=== PATIENT | female | born 1985 | race Asian ===

== ENCOUNTER 2020-11-28 08:04 | Emergency (ER) | payer BC ==
[2020-11-28] MEDS ORDERED: Sodium Chloride 0.9% 10 ML Syringe FLUSH PRN (08:06)
[2020-11-28] MEDS ORDERED: Sodium Chloride 0.9% 2.5 ML Syringe FLUSH PRN (08:06)
--- NOTE | 2020-11-28 08:21 | EDM.PDOC ---
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 She is not yet had care but has appointment on Saturday of this week. She notes that she had an at home positive test yesterday. She notes that her last menstrual period was roughly 3 or 4 months ago. She is also noticed that her abdomen appears distended over the last couple of months. She notes that spotting continues through today but is not worse than yesterday. She is denies any passage of clots or tissue. Denying any nausea or vomiting. She does have some suprapubic pain. She does have some mild suprapubic pain with urination. She denies back pain. She notes her last was complicated by "something breaking and I needed a transfusion". She did deliver vaginally and no complications with child. Lower Abdomen Pain Score (Numeric/FACES): 8 - Related Data Allergies Allergy/AdvReac Type Severity Reaction Status Date / Time chicken derived Allergy Rash Verified 11/28/20 08:30 Home Meds: Home Meds . 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 History: hx of Post bleed 05/20/15 , Bacri balloon used to stop bleeding Musculoskeletal History: Reports: None Neurological History: Reports: None Psychiatric History: Reports: None Endocrine/Metabolic History: Reports: None Hematologic History: Reports: Blood Transfusion(s) Immunologic History: Reports: None Oncologic (Cancer) History: Reports: None Dermatologic History: Reports: None Other Dermatologic History: Armpit cyst removal 10 years ago - Past Surgical History Female Surgical History: Reports: Other (See Below) ED ROS GENERAL - Review of Systems Review Of Systems: Comprehensive ROS is negative, except as noted in HPI. ED EXAM, GENERAL - Physical Exam Exam: See Below Exam Limited By: No Limitations General Appearance: Alert, WD/WN, No Apparent Distress Throat/Mouth: Normal Voice, No Airway Compromise Head: Atraumatic, Normocephalic Neck: Normal Inspection Respiratory/Chest: No Accessory Muscle Use Cardiovascular: Normal Peripheral Pulses GI/Abdominal: Soft, Non-Tender, Other (distended) Course - Vital Signs Last Recorded V/S: Last Vital Signs Temp 98.1 F 11/28/20 08:30 Pulse 95 11/28/20 08:30 Resp 16 11/28/20 08:30 BP 113/69 11/28/20 08:30 Pulse Ox 97 11/28/20 08:30 - Orders/Labs/Meds Orders: Active Orders 24 hr Category Date Time Status Sodium Chloride 0.9% [Saline Flush] Med 11/28/20 08:06 Active 10 ml FLUSH ASDIRECTED PRN Sodium Chloride 0.9% [Saline Flush] Med 11/28/20 08:06 Active 2.5 ml FLUSH ASDIRECTED PRN Saline Lock Insert [OM.PC] Stat Oth 11/28/20 08:07 Ordered Medication Orders Sodium Chloride (Saline Flush) 10 ml FLUSH ASDIRECTED PRN PRN Reason: Keep Vein Open Last Admin: 11/28/20 08:35 Dose: 10 ml Documented by: NICOLE Sodium Chloride (Saline Flush) 2.5 ml FLUSH ASDIRECTED PRN PRN Reason: Keep Vein Open Last Admin: 11/28/20 08:35 Dose: 2.5 ml Documented by: NICOLE Labs: Laboratory Tests 11/28/20 11/28/20 11/28/20 Range/Units 08:25 08:29 08:29 Sodium 137 (136-145) mmol/L Potassium 4.0 (3.5-5.1) mmol/L Chloride 102 (98-107) mmol/L Carbon Dioxide 24.0 (21.0-32.0) mmol/L BUN 11 (7.0-18.0) mg/dL Creatinine 0.8 (0.6-1.0) mg/dL Est Cr Clr Drug Dosing 76.89 mL/min Estimated GFR (MDRD) > 60.0 ml/min Glucose 88 (74-106) mg/dL Calcium 9.2 (8.5-10.1) mg/dL Total Bilirubin 0.4 (0.2-1.0) mg/dL AST 23 (15-37) IU/L ALT 45 (14-63) IU/L Alkaline Phosphatase 84 (46-116) U/L Total Protein 8.2 (6.4-8.2) g/dL Albumin 3.8 (3.4-5.0) g/dL Globulin 4.4 H (2.6-4.0) g/dL Albumin/Globulin Ratio 0.9 (0.9-1.6) HCG, Quant 4273.0 mIU/mL Urine Color YELLOW Urine Appearance CLEAR Urine pH 7.0 (5.0-8.0) Ur Specific [place] 1.020 (1.001-1.035) Urine Protein NEGATIVE (NEGATIVE) mg/dL Urine Glucose (UA) NEGATIVE (NEGATIVE) mg/dL Urine Ketones NEGATIVE (NEGATIVE) mg/dL Urine Occult Blood NEGATIVE (NEGATIVE) Urine Nitrite NEGATIVE (NEGATIVE) Urine Bilirubin NEGATIVE (NEGATIVE) Urine Urobilinogen 0.2 (<2.0) EU/dL Ur Leukocyte Esterase NEGATIVE (NEGATIVE) Blood Type 11/28/20 Range/Units 08:29 Sodium (136-145) mmol/L Potassium (3.5-5.1) mmol/L Chloride (98-107) mmol/L Carbon Dioxide (21.0-32.0) mmol/L BUN (7.0-18.0) mg/dL Creatinine (0.6-1.0) mg/dL Est Cr Clr Drug Dosing mL/min Estimated GFR (MDRD) ml/min Glucose (74-106) mg/dL Calcium (8.5-10.1) mg/dL Total Bilirubin (0.2-1.0) mg/dL AST (15-37) IU/L ALT (14-63) IU/L Alkaline Phosphatase (46-116) U/L Total Protein (6.4-8.2) g/dL Albumin (3.4-5.0) g/dL Globulin (2.6-4.0) g/dL Albumin/Globulin Ratio (0.9-1.6) HCG, Quant mIU/mL Urine Color Urine Appearance Urine pH (5.0-8.0) Ur Specific Pre[place] (1.001-1.035) Urine Protein (NEGATIVE) mg/dL Urine Glucose (UA) (NEGATIVE) mg/dL Urine Ketones (NEGATIVE) mg/dL Urine Occult Blood (NEGATIVE) Urine Nitrite (NEGATIVE) Urine Bilirubin (NEGATIVE) Urine Urobilinogen (<2.0) EU/dL Ur Leukocyte Esterase (NEGATIVE) Blood Type A POSITIVE Meds: Medications Generic Name Dose Route Start Last Admin Trade Name Terrie PRN Reason Stop Dose Admin Sodium Chloride 10 ml 11/28/20 08:06 11/28/20 08:35 Saline Flush FLUSH 10 ml ASDIRECTED PRN Administration Keep Vein Open Sodium Chloride 2.5 ml 11/28/20 08:06 11/28/20 08:35 Saline Flush FLUSH 2.5 ml ASDIRECTED PRN Administration Keep Vein Open - Re-Assessments/Exams Free Text/Narrative Re-Assessment/Exam: 11/28/20 08:26 We will get labs, ultrasound, pelvic exam. We will follow up results and disposition accordingly. 11/28/20 09:38 Ultrasound reveals evidence of early intrauterine around 5 weeks 1 day. This correlates with patient patient's beta-hCG level. Ectopic cannot fully be excluded as a pole is not seen, there is also no heartbeat as this is an early intrauterine . Patient is following up with her HEALTH INFORMATION CLERK for repeat assessment this Saturday and return precautions were discussed at length for signs and symptoms related to ectopic . Pelvis exam reveals normal external and internal vaginal exam, no discharge, no bleeding, no CMT, no masses, closed cervical os Departure - Departure Time of Disposition: 10:02 Disposition: Home, Self-Care 01 Condition: Good Clinical Impression: Qualifiers: Weeks of gestation: less than 8 weeks Qualified Code(s): Z3A.01 - Less than 8 weeks gestation of - Discharge Information Instructions: Ectopic , [id number] Referrals: PCP,None [Primary Care Provider] - Forms: ED Department Discharge Additional Instructions: Your ultrasound reveals evidence of an early . Because it is so early, we cannot fully exclude ectopic which is a type of where the fetus implants in an improper area of the body. These types of pregnancies cannot turn into normal pregnancies and are very dangerous. It is very important that you follow-up with your HEALTH INFORMATION CLERK this Saturday for repeat assessment to make sure that you do not have an ectopic . There were no signs on the ultrasound to suggest ectopic , I only give you this information because it cannot be completely ruled out at this time because of the is so early. Otherwise everything looks normal. The following information is given to patients seen in the emergency department who are being discharged to home. This information is to outline your options for follow-up care. We provide all patients seen in our emergency department with a follow-up referral. The need for follow-up, as well as the timing and circumstances, are variable depending upon the specifics of your emergency department visit. If you don't have a primary care physician on staff, we will provide you with a referral. We always advise you to contact your personal physician following an emergency department visit to inform them of the circumstance of the visit and for follow-up with them and/or the need for any referrals to a consulting specialist. The emergency department will also refer you to a specialist when appropriate. This referral assures that you have the opportunity for follow-up care with a specialist. All of these measure are taken in an effort to provide you with optimal care, which includes your follow-up. Under all circumstances we always encourage you to contact your private physician who remains a resource for coordinating your care. When calling for follow-up care, please make the office aware that this follow-up is from your recent emergency room visit. If for any reason you are refused follow-up, please contact the [facility] Emergency Department at and asked to speak to the emergency department charge nurse. Please follow up with your primary care physician. If you do not have a primary care physician, see below: [facility] [address] [place] [id number] [facility] [address] [place] [id number] [facility] [address] [place] [id number] Sepsis Event Note (ED) - Focused Exam Vital Signs: Vital Signs Temp Pulse Resp BP Pulse Ox 11/28/20 08:30 98.1 F 95 16 113/69 97 - My Orders Last 24 Hours: My Active Orders 11/28/20 08:06 Sodium Chloride 0.9% [Saline Flush] 10 ml FLUSH ASDIRECTED PRN Sodium Chloride 0.9% [Saline Flush] 2.5 ml FLUSH ASDIRECTED PRN 11/28/20 08:07 Saline Lock Insert [OM.PC] Stat - Assessment/Plan Last 24 Hours: My Active Orders 11/28/20 08:06 Sodium Chloride 0.9% [Saline Flush] 10 ml FLUSH ASDIRECTED PRN Sodium Chloride 0.9% [Saline Flush] 2.5 ml FLUSH ASDIRECTED PRN 11/28/20 08:07 Saline Lock Insert [OM.PC] Stat
[2020-11-28 09:17] LABS: BLOOD UREA NITROGEN,BUN 11 mg/dL (7.0-18.0); CHLORIDE,CL 102 mmol/L (98-107); GLUCOSE RANDOM 88 mg/dL (74-106); SODIUM,NA 137 mmol/L (136-145)
--- NOTE | 2020-11-28 09:18 | US ---
INDICATION: female; pelvic pain; rule out ectopic gestation. COMPARISON: None. TECHNIQUE: Transvaginal pelvic ultrasound. FINDINGS: An intrauterine gestation with the mean diameter of the gestational sac measuring 5.7 mm corresponding to 5 weeks and 1 day of gestational age. No pole or cardiac activity identified. The right ovary is measuring 2.4 x 2.1 x 2.2 cm and the left ovary is measuring 4.5 x 3.1 x 2.6 cm. No free fluid identified within the cul-de-sac. A solid structure identified within the left ovary with echogenic features suggestive but not diagnostic of a ethmoid. A complex cystic structure identified in the right ovary; rule out corpus luteum cyst. IMPRESSION: 1. Intrauterine gestation of 5 weeks and 1 day duration. 2. No pole or cardiac activity identified; this may be too early; followup is suggested. 3. Possible dermoid involving the left ovary. Dictated by Dilshad Bennett MD @ Nov 28 2020 9:10AM Signed by Dr. Dilshad Bennett @ Nov 28 2020 9:16AM
[2020-11-28 10:10] VITALS: BP 98/62; PULSE 88
== END 2020-11-28 10:09 | disposition home or self-care (01) ==
LOC: MW.ED 08:04
DX: O99.891 Other specified diseases and conditions complicating pregnancy (principal); R10.30 Lower abdominal pain, unspecified; Z91.018 Allergy to other foods; Z3A.01 Less than 8 weeks gestation of pregnancy
CPT/HCPCS: 36415; 76801; 76801-26; 80053; 81003; 84144; 84702; 86900; 86901; 99283; 99284-25

== ENCOUNTER 2021-07-28 00:01 | Inpatient (IN) | payer BC ==
[2021-07-28] MEDS ORDERED: Lactated Ringers 1,000 ML IV ONE (00:30)
[2021-07-28] MEDS ORDERED: Butorphanol 1 MG/ML SDV IVPUSH ONE (00:30)
[2021-07-28] MEDS ORDERED: Water For Irrigation,Sterile 1,000 ML Container IRR PRN (02:02)
[2021-07-28] MEDS ORDERED: Sodium Chloride 0.9% 2.5 ML Syringe FLUSH PRN (02:02)
[2021-07-28] MEDS ORDERED: Carboprost Tromethamine 250 MCG/1 ML Amp IM PRN (02:02)
[2021-07-28] MEDS ORDERED: Nalbuphine 10 MG/1 ML Vial IVPUSH PRN (02:02)
[2021-07-28] MEDS ORDERED: Methylergonovine 0.2 MG/1 ML Amp IM PRN ×2 (02:02→14:21)
[2021-07-28] MEDS ORDERED: Sodium Chloride 0.9% 10 ML Syringe FLUSH PRN (02:02)
[2021-07-28] MEDS ORDERED: Tranexamic Acid 1,000 MG in Sodium Chloride 0.9% 100 ML IV PRN ×2 (02:02→14:21)
[2021-07-28] MEDS ORDERED: Sodium Chloride 0.9% 10 ML SDV IV PRN (02:02)
[2021-07-28] MEDS ORDERED: Lidocaine 1% 50 ML MDV INJECT PRN (02:02)
[2021-07-28] MEDS ORDERED: Misoprostol 200 MCG Tab PO PRN (02:02)
[2021-07-28] MEDS ORDERED: Ondansetron 4 MG/2 ML SDV IVPUSH PRN ×2 (02:02→14:21)
[2021-07-28] MEDS ORDERED: Oxytocin/0.9 % Sodium Chloride 30 UNIT/500 ML BAG IV SCH ×2 (02:15→07:30)
[2021-07-28] MEDS: Lactated Ringers 1,000 ML IV SCH ×4 (02:20→21:18)
[2021-07-28] MEDS ORDERED: Ropivacaine HCl/PF 200 ML ONE (02:42)
[2021-07-28] MEDS ORDERED: Bupivacaine 0.25% 10 ML SDV ONE (02:43)
--- NOTE | 2021-07-28 03:53 | PCM.PREANE ---
Preanesthetic Assessment - Review of Systems General: No Symptoms Pulmonary: No Symptoms Cardiovascular: No Symptoms Gastrointestinal: No Symptoms Neurological: No Symptoms Other: Reports: None - Physical Assessment Height: 5 ft 2 in Weight: 76.204 kg ASA Class: 2 Mental Status: Alert & Oriented x3 Airway Class: Mallampati = 3 Dentition: Reports: Normal Dentition Thyro-Mental Finger Breadths: 2 Mouth Opening Finger Breadths: 2 ROM/Head Extension: Full Lungs: Clear to Auscultation, Normal Respiratory Effort Cardiovascular: Regular Rate, Regular Rhythm - Lab Values: Laboratory Last Values WBC 15.89 K/uL (4.0-11.0) H 07/28/21 00:20 RBC 4.23 M/uL (4.30-5.90) L 07/28/21 00:20 Hgb 10.5 g/dL (12.0-16.0) L 07/28/21 00:20 Hct 32.4 % (36.0-46.0) L 07/28/21 00:20 MCV 76.6 fL (80.0-98.0) L 07/28/21 00:20 MCH 24.8 pg (27.0-32.0) L 07/28/21 00:20 MCHC 32.4 g/dL (31.0-37.0) 07/28/21 00:20 RDW Std Deviation 42.3 fl (28.0-62.0) 07/28/21 00:20 RDW Coeff of Florentino 15 % (11.0-15.0) 07/28/21 00:20 Plt Count 320 K/uL (150-400) 07/28/21 00:20 MPV 10.20 fL (7.40-12.00) 07/28/21 00:20 SARS-CoV-2 RNA (HUANG) NEGATIVE (NEGATIVE) 07/28/21 00:34 - Allergies Allergies/Adverse Reactions: Allergies Allergy/AdvReac Type Severity Reaction Status Date / Time chicken derived Allergy Rash Verified 07/28/21 00:39 - Acknowledgements Anesthesia Type Planned: Epidural Pt an Appropriate Candidate for the Planned Anesthesia: Yes Alternatives and Risks of Anesthesia Discussed w Pt/Guardian: Yes Pt/Guardian Understands and Agrees with Anesthesia Plan: Yes PreAnesthesia Questionnaire HEENT History: Reports: None Cardiovascular History: Reports: None Respiratory History: Reports: None Gastrointestinal History: Reports: GERD 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 OB/BYN History: hx of Post bleed 05/20/15 , Bacri balloon used to stop bleeding Musculoskeletal History: Reports: None Neurological History: Reports: None Psychiatric History: Reports: None Endocrine/Metabolic History: Reports: None Hematologic History: Reports: Blood Transfusion(s) Immunologic History: Reports: None Oncologic (Cancer) History: Reports: None Dermatologic History: Reports: None Other Dermatologic History: Armpit cyst removal 10 years ago - Infectious Disease History Infectious Disease History: Reports: None - Past Surgical History Head Surgeries/Procedures: Reports: None Female Surgical History: Reports: Other (See Below) Other Female Surgeries/Procedures: bakri balloon placement for post bleed 05/20/15 - HOME MEDS Home Medications: Home Meds . [No Known Home Meds] 11/28/20 [History] - CURRENT (IN HOUSE) MEDS Current Meds: Current Medications Carboprost Tromethamine (Carboprost Tromethamine 250 Mcg/1 Ml Amp) 250 mcg IM ASDIRECTED PRN PRN Reason: Post Hemorrhage Lactated Ringer's (Ringers, Lactated) 1,000 mls @ 150 mls/hr IV ASDIRECTED HUI Last Admin: 07/28/21 02:20 Dose: 999 mls/hr Documented by: Oxytocin/Sodium Chloride (Oxytocin 30 Unit In Ns 0.9% 500 Ml Premix) 30 unit in 500 mls @ 500 mls/hr IV TITRATE [facility] Tranexamic Acid 1,000 mg/ (Sodium Chloride) 110 mls @ 660 mls/hr IV ONETIME PRN PRN Reason: Bleeding Lidocaine HCl (Lidocaine 1% 50 Ml Mdv) 50 ml INJECT ONETIME PRN PRN Reason: Laceration repair Methylergonovine Maleate (Methylergonovine 0.2 Mg/1 Ml Amp) 0.2 mg IM ASDIRECTED PRN PRN Reason: Post Hemorrhage Misoprostol (Misoprostol 200 Mcg Tab) 200 mcg PO ONETIME PRN PRN Reason: Post Hemorrhage Nalbuphine HCl (Nalbuphine 10 Mg/1 Ml Vial) 10 mg IVPUSH Q1H PRN PRN Reason: Pain (severe 7-10) Ondansetron HCl (Ondansetron 4 Mg/2 Ml Sdv) 4 mg IVPUSH Q4H PRN PRN Reason: Nausea/Vomiting Sodium Chloride (Sodium Chloride 0.9% 10 Ml Syringe) 10 ml FLUSH ASDIRECTED PRN PRN Reason: Keep Vein Open Sodium Chloride (Sodium Chloride 0.9% 2.5 Ml Syringe) 2.5 ml FLUSH ASDIRECTED PRN PRN Reason: Keep Vein Open Sodium Chloride (Sodium Chloride 0.9% 10 Ml Sdv) 10 ml IV ASDIRECTED PRN PRN Reason: IV Use Sterile Water (Water For Irrigation,Sterile 1,000 Ml Container) 1,000 ml IRR ASDIRECTED PRN PRN Reason: delivery Discontinued Medications Bupivacaine HCl (Bupivacaine 0.25% 10 Ml Sdv) Confirm Administered Dose 10 ml .ROUTE .STSageFire-MED ONE Stop: 07/28/21 02:44 Butorphanol Tartrate (Butorphanol 1 Mg/Ml Sdv) 1 mg IVPUSH ONETIME ONE Stop: 07/28/21 00:31 Last Admin: 07/28/21 00:41 Dose: 1 mg Documented by: Lactated Ringer's (Ringers, Lactated) 1,000 mls @ 500 mls/hr IV BOLUS ONE Stop: 07/28/21 02:29 Last Admin: 07/28/21 00:25 Dose: 500 mls/hr Documented by: Ropivacaine (Naropin 0.2%) Confirm Administered Dose 200 mls @ as directed .ROUTE .STK-MED ONE Stop: 07/28/21 02:43
--- NOTE | 2021-07-28 03:57 | PCM.POSTAN ---
POST ANESTHESIA ASSESSMENT - MENTAL STATUS Mental Status: Alert, Oriented - RESPIRATORY Respiratory Status: Respiratory Rate WNL, Airway Patent, O2 Saturation Stable - CARDIOVASCULAR CV Status: Pulse Rate WNL, Blood Pressure Stable - GASTROINTESTINAL GI Status: No Symptoms - POST OP HYDRATION Hydration Status: Adequate & Stable
--- NOTE | 2021-07-28 03:57 | PCM.SN.2 ---
Time Documentation - Pre-Procedure Checklist Attending Provider Aware: Yes Chart Reviewed: Yes Consent Signed: Yes Labs Reviewed: Yes VS/FHR Reviewed: Yes Patient Identification Confirmation Method: Reports: ID Band Visual, Verbal Patient Pt an Appropriate Candidate for the Planned Anesthesia: Yes Alternatives and Risks of Anesthesia Discussed w Pt/Guardian: Yes - Procedure Procedure Start Date: 07/28/21 Procedure Start Time: 02:[address]: Reports: Blood Pressure, Heart Rate, SPO2 Functional IV: Yes Safety Measures: Reports: Patient Identified, Procedure Verified, Site Verified, Procedure Time Out Patient Position: Reports: Sitting Prep: Reports: Betadine x3, Sterile Drape Local Anesthetic: Reports: Intradermal Wheal w Lidocaine 1% Regional Placement Level: Reports: L4-5 Needle: Reports: 17 g Touhy Approach: Reports: Midline Technique: Reports: MIS Plastic Syringe (MIS to saline) Parasthesia: Reports: None Fluid Obtained: Reports: None Test Dose Time: 02:54 Test Dose Medication: Reports: Lidocaine 1.5% w Epinephrine 1:200,000 Test Dose Response: Reports: Negative Loading Dose Time: 02:57 Loading Dose Medication: Bupivacaine 0.25% PF 10 ml in 2 separate doses 5 min apart Loading Dose Patient Position: semi-fowlers Continuous Infusion Start Time: 03:03 Continuous Infusion Medication: Ropivacaine 0.2% Continuous Infusion Rate: 14 ml/hr Continuous Infusion PCS Bolus Option: 4 ml q 15 min Patient Position Post Placement: Reports: Semi-fowlers/YARELI Level Achieved: T-10 VS and FHR Monitored in Unit Post Placement: Yes Procedure End Date: 07/28/21 Procedure End Time: 03:40 Procedure Comment: Pt. tolerated procedure well
[2021-07-28] MEDS ORDERED: ePHEDrine 50 MG/ML SDV IVPUSH PRN (03:58)
[2021-07-28] MEDS ORDERED: Ropivacaine/PF 400 MG/200 ML PCA EPIDUR SCH (04:00)
[2021-07-28] MEDS ORDERED: Terbutaline 1 MG/ML SDV SUBCUT PRN (07:24)
--- NOTE | 2021-07-28 07:32 | PCM.LDHP ---
L&D History of Present Illness - General Date of Service: 07/28/21 Admit Problem/Dx: Patient Status Order with Admit Dx/Problem 07/28/21 00:00 Patient Status [ADT] Routine Admission Diagnosis/Problem Admission Diagnosis/Problem Source of Information: Patient History Limitations: Reports: No Limitations - History of Present Illness Introduction:: 35 year old female at 39w5d presents to labor and delivery in spontaneous labor. She was originally scheduled for IOL on Saturday evening due to pelvic pain and postdates. Her cervix changed from fingertip to 2cm/90%/-3 station over a course of two hours. She was then admitted and requested an epidural for pain. Reports good movement. Had vaginal spotting this week after multiple cervical exams. Denies leaking fluid. was complicated by AMA and tobac co use. Pain Score: 8 - Related Data Allergies/Adverse Reactions: Allergies Allergy/AdvReac Type Severity Reaction Status Date / Time chicken derived Allergy Rash Verified 07/28/21 00:39 Home Medications: Home Meds . 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 OB/BYN History: hx of Post bleed 05/20/15 , Bacri balloon used to stop bleeding Musculoskeletal History: Reports: None Neurological History: Reports: None Psychiatric History: Reports: None Endocrine/Metabolic History: Reports: None Hematologic History: Reports: Blood Transfusion(s) Immunologic History: Reports: None Oncologic (Cancer) History: Reports: None Dermatologic History: Reports: None Other Dermatologic History: Armpit cyst removal 10 years ago - Infectious Disease History Infectious Disease History: Reports: None - Past Surgical History Head Surgeries/Procedures: Reports: None Female Surgical History: Reports: Other (See Below) Other Female Surgeries/Procedures: bakri balloon placement for post bleed 05/20/15 Social & Family History - Family History OBGYN: Reports: Dysfunctional uterine bleeding - Tobacco Use Tobacco Use Status *Q: Never Tobacco User Second Hand Smoke Exposure: Yes - Caffeine Use Caffeine Use: Reports: Coffee, Soda, Tea - Recreational Drug Use Recreational Drug Use: No H&P Review of Systems - Review of Systems: Review Of Systems: See Below General: Reports: No Symptoms HEENT: Reports: No Symptoms Pulmonary: Reports: No Symptoms Cardiovascular: Reports: No Symptoms Gastrointestinal: Reports: Abdominal Pain Genitourinary: Reports: No Symptoms Musculoskeletal: Reports: Back Pain Skin: Reports: No Symptoms Psychiatric: Reports: No Symptoms Neurological: Reports: No Symptoms Hematologic/Lymphatic: Reports: No Symptoms Immunologic: Reports: No Symptoms L&D Exam - Exam Exam: See Below - Vital Signs Weight: 168 lb - OB Specific Contraction Frequency (min): 3 minutes Contraction Intensity: Moderate Movement: Active Heart Tones: Present Heart Tones per Min: 140 Heart Rate (FHR) Variability: Moderate (6-25 bpm) Presentation: Vertex Estimated Weight: 3400g - Harrison Score Harrison Score Cervix Position: Midposition Harrison Score Consistency: Soft Harrison Score Effacement: >80% Harrison Score Dilation: 1-2 cm Harrison Score Infant's Station: -2 Harrison Score Total: 8 - Exam General: Alert Lungs: Normal Respiratory Effort Cardiovascular: Regular Rate GI/Abdominal Exam: Soft, Non-Tender Back Exam: Full Range of Motion Extremities: Normal Range of Motion, Non-Tender, No Pedal Edema Skin: Warm, Dry, Intact Psychiatric: Normal Mood - Patient Data Lab Results Last 24 hrs: Laboratory Results - last 24 hr 07/28/21 07/28/21 07/28/21 Range/Units 00:20 00:20 00:34 WBC 15.89 H (4.0-11.0) K/uL RBC 4.23 L (4.30-5.90) M/uL Hgb 10.5 L (12.0-16.0) g/dL Hct 32.4 L (36.0-46.0) % MCV 76.6 L (80.0-98.0) fL MCH 24.8 L (27.0-32.0) pg MCHC 32.4 (31.0-37.0) g/dL RDW Std Deviation 42.3 (28.0-62.0) fl RDW Coeff of Florentino 15 (11.0-15.0) % Plt Count 320 (150-400) K/uL MPV 10.20 (7.40-12.00) fL SARS-CoV-2 RNA (HUANG) NEGATIVE (NEGATIVE) Blood Type A POSITIVE Antibody Screen POSITIVE Antibody Identification Anti-E Crossmatch See Detail Result Diagrams: 07/28/21 00:20 Problem List Initiated/Reviewed/Updated: Yes Orders Last 24hrs: Active Orders 24 hr Category Date Time Status Patient Status [ADT] Routine ADT 07/28/21 00:00 Active Communication Order [RC] PRN Care 07/28/21 03:58 Active Heart Tones [RC] CONTINUOUS Care 07/28/21 02:02 Active Non Stress Test [RC] PER UNIT ROUTINE Care 07/28/21 00:18 Active Notify Provider [RC] PRN Care 07/28/21 02:02 Active Notify Provider [RC] PRN Care 07/28/21 07:25 Ordered Notify Provider [RC] PRN Care 07/28/21 07:25 Ordered Notify Provider [RC] STAT Care 07/28/21 07:25 Ordered Up ad Saria [RC] ASDIRECTED Care 07/28/21 00:18 Active Vaginal Exam [RC] Click to Edit Care 07/28/21 00:18 Active Vital Signs [RC] PER UNIT ROUTINE Care 07/28/21 00:18 Active Vital Signs [RC] PER UNIT ROUTINE Care 07/28/21 07:25 Ordered ANTIBODY IDENTIFICATION [BBK] Routine Lab 07/28/21 00:20 Results RED BLOOD CELLS LP [BBK] Routine Lab 07/28/21 00:20 Results RPR (SYPHILIS SERO) W/ RFLX [REF] Routine Lab 07/28/21 00:20 Received TYPE AND SCREEN [BBK] Routine Lab 07/28/21 00:20 Results Carboprost Tromethamine [Hemabate DS] Med 07/28/21 02:02 Active 250 mcg IM ASDIRECTED PRN Lactated Ringers [Ringers, Lactated] 1,000 ml Med 07/28/21 02:15 Active IV ASDIRECTED Lidocaine 1% [Xylocaine 1%] Med 07/28/21 02:02 Active 50 ml INJECT ONETIME PRN Methylergonovine [Methergine] Med 07/28/21 02:02 Active 0.2 mg IM ASDIRECTED PRN Nalbuphine [Nubain] Med 07/28/21 02:02 Active 10 mg IVPUSH Q1H PRN Ondansetron [Zofran] Med 07/28/21 02:02 Active 4 mg IVPUSH Q4H PRN Oxytocin 30 Units in 0.9% Sodium Chloride @ 2 MUNITS/ Med 07/28/21 07:30 Ordered MIN(500ml) Oxytocin/0.9 % Sodium Chloride [Oxytocin 30 Unit in NS 0.9% 500 ML Premix] 30 unit in 500 ml IV TITRATE Oxytocin/0.9 % Sodium Chloride [Oxytocin 30 Unit in NS Med 07/28/21 02:15 Active 0.9% 500 ML Premix] 30 unit in 500 ml IV TITRATE Phenylephrine HCl In 0.9% NaCl [Phenylephrine 1 MG/10 Med 07/28/21 03:58 Active ML-NS] 0.1 mg IVPUSH Q1M PRN Ropivacaine HCl/PF [Ropivacaine 0.2% ENGINEER TECHNICIAN 400 MG in 200 Med 07/28/21 04:00 Active ML] 400 mg EPIDUR ASDIRECTED Sodium Chloride 0.9% [Normal Saline] Med 07/28/21 02:02 Active 10 ml IV ASDIRECTED PRN Sodium Chloride 0.9% [Saline Flush] Med 07/28/21 02:02 Active 10 ml FLUSH ASDIRECTED PRN Sodium Chloride 0.9% [Saline Flush] Med 07/28/21 02:02 Active 2.5 ml FLUSH ASDIRECTED PRN Terbutaline [Brethine] Med 07/28/21 07:24 Ordered 0.25 mg SUBCUT ASDIRECTED PRN Tranexamic Acid [Cyklokapron] 1,000 mg Med 07/28/21 02:02 Active Sodium Chloride 0.9% [Normal Saline] 100 ml IV ONETIME Water For Irrigation,Sterile [Sterile Water for Med 07/28/21 02:02 Active Irrigation] 1,000 ml IRR ASDIRECTED PRN ePHEDrine [ePHEDrine sulfate] Med 07/28/21 03:58 Active 10 mg IVPUSH Q1M PRN miSOPROStoL [Cytotec] Med 07/28/21 02:02 Active 200 mcg PO ONETIME PRN Medication Administration Instruction [OM.PC] Q3H Oth 07/28/21 07:30 Ordered Peripheral IV Insertion Adult [OM.PC] Routine Oth 07/28/21 02:02 Ordered Resuscitation Status Routine Resus Stat 07/28/21 00:18 Ordered Medication Orders Carboprost Tromethamine (Carboprost Tromethamine 250 Mcg/1 Ml Amp) 250 mcg IM ASDIRECTED PRN PRN Reason: Post Hemorrhage Ephedrine Sulfate (Ephedrine 50 Mg/Ml Sdv) 10 mg IVPUSH Q1M PRN PRN Reason: Hypotension Lactated Ringer's (Ringers, Lactated) 1,000 mls @ 150 mls/hr IV ASDIRECTED [facility] Last Admin: 07/28/21 05:16 Dose: 150 mls/hr Documented by: Infusion: 07/28/21 03:21 Dose: 999 mls/hr Documented by: Admin: 07/28/21 02:20 Dose: 999 mls/hr Documented by: TOMÁS Oxytocin/Sodium Chloride (Oxytocin 30 Unit In Ns 0.9% 500 Ml Premix) 30 unit in 500 mls @ 500 mls/hr IV TITRATE [facility] Tranexamic Acid 1,000 mg/ (Sodium Chloride) 110 mls @ 660 mls/hr IV ONETIME PRN PRN Reason: Bleeding Lidocaine HCl (Lidocaine 1% 50 Ml Mdv) 50 ml INJECT ONETIME PRN PRN Reason: Laceration repair Methylergonovine Maleate (Methylergonovine 0.2 Mg/1 Ml Amp) 0.2 mg IM ASDIRECTED PRN PRN Reason: Post Hemorrhage Miscellaneous Medication (Phenylephrine Hcl In 0.9% Nacl 1 Mg/10 Ml Syringe) 0.1 mg IVPUSH Q1M PRN PRN Reason: Hypotension Misoprostol (Misoprostol 200 Mcg Tab) 200 mcg PO ONETIME PRN PRN Reason: Post Hemorrhage Nalbuphine HCl (Nalbuphine 10 Mg/1 Ml Vial) 10 mg IVPUSH Q1H PRN PRN Reason: Pain (severe 7-10) Ondansetron HCl (Ondansetron 4 Mg/2 Ml Sdv) 4 mg IVPUSH Q4H PRN PRN Reason: Nausea/Vomiting Ropivacaine (Ropivacaine/Pf 400 Mg/200 Ml Instructor Of Education) 400 mg EPIDUR ASDIRECTED [facility] Sodium Chloride (Sodium Chloride 0.9% 10 Ml Syringe) 10 ml FLUSH ASDIRECTED PRN PRN Reason: Keep Vein Open Sodium Chloride (Sodium Chloride 0.9% 2.5 Ml Syringe) 2.5 ml FLUSH ASDIRECTED PRN PRN Reason: Keep Vein Open Sodium Chloride (Sodium Chloride 0.9% 10 Ml Sdv) 10 ml IV ASDIRECTED PRN PRN Reason: IV Use Sterile Water (Water For Irrigation,Sterile 1,000 Ml Container) 1,000 ml IRR ASDIRECTED PRN PRN Reason: delivery Assessment/Plan Comment:: 35 year old female at 39w5d in spontaneous labor * Rh positive, rubella immune, GBS negative * Epidural for pain management * Plan to start pitocin for augmentation of labor as patient's cervical exam has not changed in over two hours despite contractions every 3-5 minutes * Will sign out to Dr. Fernandez, on-call provider today to assume care
[2021-07-28] MEDS ORDERED: Acetaminophen 325 MG Tab PO PRN (10:43)
[2021-07-28] MEDS ORDERED: Acetaminophen 500 MG Tab ONE (10:43)
[2021-07-28] MEDS ORDERED: Sodium Chloride 0.9% 1,000 ML IRR SCH (10:45)
[2021-07-28] MEDS: Ampicillin 2 GM in Sodium Chloride 0.9% 100 ML IV SCH ×2 (11:01→16:57)
[2021-07-28] MEDS: GENTAMICIN IV SCH ×2 (11:49)
[2021-07-28] MEDS: WATER IV SCH ×2 (11:49)
[2021-07-28] MEDS: DEXTROSE 5% IV SCH ×2 (11:49)
[2021-07-28] MEDS ORDERED: Oxytocin 10 Units/1 ML SDV ONE ×3 (12:12→13:00)
[2021-07-28] MEDS ORDERED: Ondansetron 4 MG/2 ML SDV ONE (12:14)
[2021-07-28] MEDS ORDERED: Clindamycin Phosphate in D5W 900 MG in Premix Bag 1 BAG IV ONE ×2 (12:23)
[2021-07-28] MEDS ORDERED: Lidocaine 2% with EPINEPHrine 1:200,000 20 ML SDV ONE (12:45)
[2021-07-28] MEDS ORDERED: Morphine PF 10 MG/10 ML SDV ONE (12:50)
[2021-07-28] MEDS ORDERED: Propofol 200 MG/20 ML SDV ONE (13:15)
[2021-07-28] MEDS ORDERED: ePHEDrine 50 MG/ML SDV ONE (13:24)
[2021-07-28] MEDS ORDERED: Sodium Chloride 0.9% 20 ML ONE (13:25)
[2021-07-28] MEDS ORDERED: Ketorolac 30 MG/ML SDV ONE (13:57)
[2021-07-28] MEDS ORDERED: Misoprostol 200 MCG Tab RECTAL PRN (14:21)
[2021-07-28] MEDS ORDERED: diphenhydrAMINE 50 MG/ML SDV IVPUSH PRN (14:21)
[2021-07-28] MEDS ORDERED: Oxytocin 10 Units/1 ML SDV IM PRN (14:21)
[2021-07-28] MEDS ORDERED: Lanolin 100% Cream 7 GM Tube TOP PRN (14:21)
[2021-07-28] MEDS ORDERED: Bisacodyl 10 MG Supp RECTAL PRN (14:21)
[2021-07-28] MEDS ORDERED: Acetaminophen/oxyCODONE 325-5 MG Tab PO PRN (14:21)
[2021-07-28] MEDS ORDERED: Oxytocin/Lactated Ringers 30 UNIT/500 ML BAG IV SCH (14:30)
--- NOTE | 2021-07-28 14:33 | PCM.OPNOTE ---
- General Post-Op/Procedure Note Date of Surgery/Procedure: 07/28/21 Operative Procedure(s): Primary lower transverse section. Left ovarian dermoid cystectomy Findings: Live female delivered at 1255pm , 8/9 Weight 3550g Broad ligament tear - repaired Left ovarian cystectomy - Dermoid 6cm Pre Op Diagnosis: 35yo @ 39w5d with Cat 2 FHT. Chorioamnionitis Post-Op Diagnosis: Same. Left Ovarian dermoid cyst Anesthesia Technique: Epidural, General ET Tube Primary Surgeon: Viky Martinez Anesthesia Provider: Shell Galo Pathology: Placenta , Left ovarian cyst wall and content Fluid Replacement, Intraop: 1,800 Output, Urine Amount: 150 EBL in mLs: 1,500 Complications: None Condition: Good
--- NOTE | 2021-07-28 14:51 | PCM48HPAN ---
Post Anesthesia Note - EVALUATION WITHIN 48HRS OF ANESTHETIC Vital Signs in Normal Range: Yes Patient Participated in Evaluation: Yes Respiratory Function Stable: Yes Airway Patent: Yes Cardiovascular Function Stable: Yes Hydration Status Stable: Yes Pain Control Satisfactory: Yes Nausea and Vomiting Control Satisfactory: Yes Mental Status Recovered: Yes Vital Signs: Last Vital Signs Temp 208.4 F H 07/28/21 14:20 Pulse 100 07/28/21 14:45 Resp 23 H 07/28/21 14:45 BP 100/63 07/28/21 14:45 Pulse Ox 95 07/28/21 14:45
--- NOTE | 2021-07-28 14:51 | PCM.POSTAN ---
POST ANESTHESIA ASSESSMENT - MENTAL STATUS Mental Status: Alert, Oriented - VITAL SIGNS Vital Signs: Last Vital Signs Temp 208.4 F H 07/28/21 14:20 Pulse 100 07/28/21 14:45 Resp 23 H 07/28/21 14:45 BP 100/63 07/28/21 14:45 Pulse Ox 95 07/28/21 14:45 - RESPIRATORY Respiratory Status: Respiratory Rate WNL, Airway Patent, O2 Saturation Stable - CARDIOVASCULAR CV Status: Pulse Rate WNL, Blood Pressure Stable - GASTROINTESTINAL GI Status: No Symptoms - POST OP HYDRATION Hydration Status: Adequate & Stable
[2021-07-28] MEDS: Docusate Sodium 100 MG Cap PO SCH (20:27)
[2021-07-28] MEDS: Ketorolac 30 MG/ML SDV IVPUSH SCH (20:27)
[2021-07-29] MEDS: Clindamycin Phosphate in D5W 900 MG in Premix Bag 1 BAG IV SCH ×8 (00:29→22:28)
[2021-07-29] MEDS: Ketorolac 30 MG/ML SDV IVPUSH SCH ×3 (01:41→15:41)
[2021-07-29] MEDS: Ampicillin 2 GM in Sodium Chloride 0.9% 100 ML IV SCH ×4 (02:56→17:09)
--- NOTE | 2021-07-29 03:30 | PCM.PNPP ---
- General Info Date of Service: 07/29/21 Admission Dx/Problem (Free Text): Patient Status Order with Admit Dx/Problem Subjective Update: 35yo s/p primary for Cat 2FHT , PPH Patient was feeling weak , she had h/h 05/24 , she is currently getting 2UPRBC She states she feels better now U/o about 30ml/hr Bottle feeding Functional Status: Reports: Pain Controlled, Tolerating Diet, Ambulating - Review of Systems General: Reports: No Symptoms HEENT: Reports: No Symptoms Pulmonary: Reports: No Symptoms Cardiovascular: Reports: No Symptoms Gastrointestinal: Reports: No Symptoms Genitourinary: Reports: No Symptoms Musculoskeletal: Reports: No Symptoms Skin: Reports: No Symptoms Neurological: Reports: No Symptoms Psychiatric: Reports: No Symptoms - General Info Date of Service: 07/29/21 - Patient Data Vital Signs - Most Recent: Last Vital Signs Temp 35.9 C L 07/29/21 02:22 Pulse 97 07/29/21 02:22 Resp 18 07/29/21 02:22 BP 92/59 L 07/29/21 02:22 Pulse Ox 98 07/29/21 02:22 Weight - Most Recent: 76.204 kg I&O - Last 24 Hours: Intake & Output 07/28/21 07/28/21 07/29/21 14:59 22:59 06:59 Intake Total 4150 0 350 Output Total 600 300 Balance 3550 -300 350 Lab Results - Last 24 Hours: Laboratory Results - last 24 hr 07/28/21 07/28/21 07/28/21 Range/Units 00:20 13:00 17:12 Hgb 7.1 L (12.0-16.0) g/dL Hct 21.7 L (36.0-46.0) % Cord VBG pH 7.368 (7.25-7.45) Cord VBG Base Excess -4 (-10--2) Blood Type A POSITIVE Antibody Screen POSITIVE Antibody Identification Anti-E Crossmatch See Detail Med Orders - Current: Current Medications Acetaminophen (Acetaminophen 325 Mg Tab) 1,000 mg PO Q8H PRN PRN Reason: Fever Bisacodyl (Bisacodyl 10 Mg Supp) 10 mg RECTAL ONETIME PRN PRN Reason: Constipation Carboprost Tromethamine (Carboprost Tromethamine 250 Mcg/1 Ml Amp) 250 mcg IM ASDIRECTED PRN PRN Reason: Post Hemorrhage Diphenhydramine HCl (Diphenhydramine 50 Mg/Ml Sdv) 25 mg IVPUSH Q6H PRN PRN Reason: Itching or Nausea Docusate Sodium (Docusate Sodium 100 Mg Cap) 100 mg PO BID [facility] Last Admin: 07/28/21 20:27 Dose: 100 mg Documented by: Emollient Ointment (Lanolin 100% Cream 7 Gm Tube) 0 gm TOP ASDIRECTED PRN PRN Reason: Sore Nipples Ephedrine Sulfate (Ephedrine 50 Mg/Ml Sdv) 10 mg IVPUSH Q1M PRN PRN Reason: Hypotension Lactated Ringer's (Ringers, Lactated) 1,000 mls @ 150 mls/hr IV ASDIRECTED [facility] Last Admin: 07/28/21 21:18 Dose: 150 mls/hr Documented by: Oxytocin/Sodium Chloride (Oxytocin 30 Unit In Ns 0.9% 500 Ml Premix) 30 unit in 500 mls @ 500 mls/hr IV TITRATE [facility] Tranexamic Acid 1,000 mg/ (Sodium Chloride) 110 mls @ 660 mls/hr IV ONETIME PRN PRN Reason: Bleeding Oxytocin/Sodium Chloride (Oxytocin 30 Unit In Ns 0.9% 500 Ml Premix) 30 unit in 500 mls @ 2 mls/hr IV TITRATE [facility]; Protocol Last Titration: 07/28/21 10:45 Dose: 0 munits/min, 0 mls/hr Documented by: Ampicillin Sodium 2 gm/ Sodium (Chloride) 100 mls @ 200 mls/hr IV Q6H [facility] Last Admin: 07/29/21 02:56 Dose: Not Given Documented by: Gentamicin Sulfate 420 mg/ (Dextrose/Water) 110.5 mls @ 221 mls/hr IV Q24H [facility] Last Admin: 07/28/21 11:49 Dose: 221 mls/hr Documented by: Lactated Ringer's (Ringers, Lactated) 1,000 mls @ 125 mls/hr IV ASDIRECTED [facility] Last Admin: 07/28/21 17:35 Dose: 125 mls/hr Documented by: Oxytocin/Lactated Ringer's (Pitocin In Lr 30 Units/500 Ml) 30 unit in 500 mls @ 2 mls/hr IV TITRATE [facility]; Protocol Tranexamic Acid 1,000 mg/ (Sodium Chloride) 110 mls @ 660 mls/hr IV ONETIME PRN PRN Reason: Bleeding Clindamycin Phosphate 900 mg/ (Premix) 50 mls @ 100 mls/hr IV Q8H [facility] Last Admin: 07/29/21 00:29 Dose: 100 mls/hr Documented by: Sodium Chloride (Normal Saline) 1,000 mls @ 500 mls/hr IRR ASDIRECTED [facility] Last Admin: 07/28/21 10:45 Dose: 500 mls/hr Documented by: Ibuprofen (Ibuprofen 800 Mg Tab) 800 mg PO Q8H PRN PRN Reason: Cramping Ketorolac Tromethamine (Ketorolac 30 Mg/Ml Sdv) 30 mg IVPUSH Q6H [facility] Stop: 07/29/21 14:31 Last Admin: 07/29/21 01:41 Dose: 30 mg Documented by: Lidocaine HCl (Lidocaine 1% 50 Ml Mdv) 50 ml INJECT ONETIME PRN PRN Reason: Laceration repair Methylergonovine Maleate (Methylergonovine 0.2 Mg/1 Ml Amp) 0.2 mg IM ASDIRECTED PRN PRN Reason: Post Hemorrhage Methylergonovine Maleate (Methylergonovine 0.2 Mg/1 Ml Amp) 0.2 mg IM ONETIME PRN PRN Reason: Excessive Vaginal Bleeding Miscellaneous Medication (Phenylephrine Hcl In 0.9% Nacl 1 Mg/10 Ml Syringe) 0.1 mg IVPUSH Q1M PRN PRN Reason: Hypotension Last Admin: 07/28/21 09:10 Dose: 0.1 mg Documented by: Misoprostol (Misoprostol 200 Mcg Tab) 200 mcg PO ONETIME PRN PRN Reason: Post Hemorrhage Misoprostol (Misoprostol 200 Mcg Tab) 1,000 mcg RECTAL ONETIME PRN PRN Reason: excessive bleeding Nalbuphine HCl (Nalbuphine 10 Mg/1 Ml Vial) 10 mg IVPUSH Q1H PRN PRN Reason: Pain (severe 7-10) Ondansetron HCl (Ondansetron 4 Mg/2 Ml Sdv) 4 mg IVPUSH Q4H PRN PRN Reason: Nausea/Vomiting Ondansetron HCl (Ondansetron 4 Mg/2 Ml Sdv) 4 mg IVPUSH Q4H PRN PRN Reason: Nausea/Vomiting Last Admin: 07/28/21 18:30 Dose: 4 mg Documented by: Oxycodone/Acetaminophen (Acetaminophen/Oxycodone 325-5 Mg Tab) 1 tab PO Q4H PRN PRN Reason: Pain (severe 7-10) Oxycodone/Acetaminophen (Acetaminophen/Oxycodone 325-5 Mg Tab) 2 tab PO Q4H PRN PRN Reason: Pain (severe 7-10) Oxytocin (Oxytocin 10 Units/1 Ml Sdv) 10 unit IM ASDIRECTED PRN PRN Reason: Excessive Vaginal Bleeding Ropivacaine (Ropivacaine/Pf 400 Mg/200 Ml Supervisor Inspection Department) 400 mg EPIDUR ASDIRECTED [facility] Sodium Chloride (Sodium Chloride 0.9% 10 Ml Syringe) 10 ml FLUSH ASDIRECTED PRN PRN Reason: Keep Vein Open Sodium Chloride (Sodium Chloride 0.9% 2.5 Ml Syringe) 2.5 ml FLUSH ASDIRECTED PRN PRN Reason: Keep Vein Open Sodium Chloride (Sodium Chloride 0.9% 10 Ml Sdv) 10 ml IV ASDIRECTED PRN PRN Reason: IV Use Sterile Water (Water For Irrigation,Sterile 1,000 Ml Container) 1,000 ml IRR ASDIRECTED PRN PRN Reason: delivery Terbutaline Sulfate (Terbutaline 1 Mg/Ml Sdv) 0.25 mg SUBCUT ASDIRECTED PRN PRN Reason: Tacysystole Discontinued Medications Acetaminophen (Acetaminophen 500 Mg Tab) Confirm Administered Dose 1,000 mg .ROUTE .STK-MED ONE Stop: 07/28/21 10:44 Last Admin: 07/28/21 10:46 Dose: 1,000 mg Documented by: Bupivacaine HCl (Bupivacaine 0.25% 10 Ml Sdv) Confirm Administered Dose 10 ml .ROUTE .STK-MED ONE Stop: 07/28/21 02:44 Last Admin: 07/29/21 03:14 Dose: Not Given Documented by: Butorphanol Tartrate (Butorphanol 1 Mg/Ml Sdv) 1 mg IVPUSH ONETIME ONE Stop: 07/28/21 00:31 Last Admin: 07/28/21 00:41 Dose: 1 mg Documented by: Ephedrine Sulfate (Ephedrine 50 Mg/Ml Sdv) Confirm Administered Dose 50 mg .ROUTE .STK-MED ONE Stop: 07/28/21 13:25 Gentamicin Sulfate (Pharmacy To Dose - Gentamicin) 1 dose .XX ASDIRECTED [facility]UI Lactated Ringer's (Ringers, Lactated) 1,000 mls @ 500 mls/hr IV BOLUS ONE Stop: 07/28/21 02:29 Last Admin: 07/28/21 00:25 Dose: 500 mls/hr Documented by: Ropivacaine (Naropin 0.2%) Confirm Administered Dose 200 mls @ as directed .ROUTE .STK-MED ONE Stop: 07/28/21 02:43 Last Admin: 07/29/21 03:14 Dose: Not Given Documented by: Clindamycin Phosphate 900 mg/ (Premix) 50 mls @ 100 mls/hr IV ONETIME ONE Stop: 07/28/21 12:52 Sodium Chloride (Normal Saline) Confirm Administered Dose 20 mls @ as directed .ROUTE .STK-MED ONE Stop: 07/28/21 13:26 Ketorolac Tromethamine (Ketorolac 30 Mg/Ml Sdv) Confirm Administered Dose 30 mg .ROUTE .STK-MED ONE Stop: 07/28/21 13:58 Lidocaine/Epinephrine (Lidocaine 2% With Epinephrine 1:200,000 20 Ml Sdv) Confirm Administered Dose 20 ml .ROUTE .STK-MED ONE Stop: 07/28/21 12:46 Miscellaneous Medication (Phenylephrine Hcl In 0.9% Nacl 1 Mg/10 Ml Syringe) Confirm Administered Dose 1 mg .ROUTE .STK-MED ONE Stop: 07/28/21 12:46 Morphine Sulfate (Morphine Pf 10 Mg/10 Ml Sdv) Confirm Administered Dose 10 mg .ROUTE .STK-MED ONE Stop: 07/28/21 12:51 Ondansetron HCl (Ondansetron 4 Mg/2 Ml Sdv) Confirm Administered Dose 4 mg .RO ANASTASIYA .STK-MED ONE Stop: 07/28/21 12:15 Oxytocin (Oxytocin 10 Units/1 Ml Sdv) Confirm Administered Dose 10 unit .ROUTE .STK-MED ONE Stop: 07/28/21 12:13 Oxytocin (Oxytocin 10 Units/1 Ml Sdv) Confirm Administered Dose 10 unit .ROUTE .STK-MED ONE Stop: 07/28/21 12:13 Oxytocin (Oxytocin 10 Units/1 Ml Sdv) Confirm Administered Dose 10 unit .ROUTE .STK-MED ONE Stop: 07/28/21 13:01 Propofol (Propofol 200 Mg/20 Ml Sdv) Confirm Administered Dose 200 mg .ROUTE .STK-MED ONE Stop: 07/28/21 13:16 - Interaction Support Person: - Recovery Exam Fundal Tone: Firm Fundal Level: 2 Fingerbreadths Below Umbilicus Fundal Placement: Midline Lochia Amount: Scant, Small Lochia Color: Rubra/Red Perineum Description: Intact, Minimal Bruising/Swelling Episiotomy/Laceration: None Bladder Status: Indwelling Catheter in Place Urinary Elimination: Indwelling Catheter - Exam General: Alert HEENT: Pupils Equal Neck: Supple Lungs: Clear to Auscultation Cardiovascular: Regular Rate, Regular Rhythm GI/Abdominal Exam: Normal Bowel Sounds Extremities: Normal Inspection Wound/Incisions: Dressing Dry and Intact Psy/Mental Status: Alert - Problem List & Annotations (1) delivery delivered SNOMED Code(s): 801984272 Code(s): O82 - ENCOUNTER FOR DELIVERY WITHOUT INDICATION Status: Acute Current Visit: Yes (2) hemorrhage SNOMED Code(s): 06745016 Code(s): O72.1 - OTHER IMMEDIATE HEMORRHAGE Status: Acute Current Visit: No - Problem List Review Problem List Initiated/Reviewed/Updated: Yes - My Orders Last 24 Hours: My Active Orders 07/28/21 10:43 Acetaminophen [TylenoL] 1,000 mg PO Q8H PRN 07/28/21 10:45 Ampicillin 2 gm Sodium Chloride 0.9% [Normal Saline] 100 ml IV Q6H Sodium Chloride 0.9% [Normal Saline] 1,000 ml IRR ASDIRECTED 07/28/21 11:30 Gentamicin 420 mg Dextrose 5% in Water 100 ml IV Q24H 07/28/21 14:21 Notify Provider Intake and Out [RC] ASDIRECTED Notify Provider Vital Signs [RC] ASDIRECTED Acetaminophen/oxyCODONE [Percocet 325-5 MG] 1 tab PO Q4H PRN Acetaminophen/oxyCODONE [Percocet 325-5 MG] 2 tab PO Q4H PRN Lanolin [Lansinoh HPA] See Dose Instructions TOP ASDIRECTED PRN Methylergonovine [Methergine] 0.2 mg IM ONETIME PRN Ondansetron [Zofran] 4 mg IVPUSH Q4H PRN Oxytocin [Pitocin] 10 unit IM ASDIRECTED PRN Tranexamic Acid [Cyklokapron] 1,000 mg Sodium Chloride 0.9% [Normal Saline] 100 ml IV ONETIME bisacodyL [Dulcolax] 10 mg RECTAL ONETIME PRN diphenhydrAMINE [Benadryl] 25 mg IVPUSH Q6H PRN miSOPROStoL [Cytotec] 1,000 mcg RECTAL ONETIME PRN Resuscitation Status Routine 07/28/21 14:22 Patient Status [ADT] Routine Ambulate [RC] PER UNIT ROUTINE Communication Order [RC] PER UNIT ROUTINE Communication Order [RC] PER UNIT ROUTINE Communication Order [RC] Per Unit Routine May Shower [RC] ASDIRECTED RT Incentive Spirometry [RC] Q2HWA Vital Signs [RC] Q1H Assess Lochia [WOMSER] Per Unit Routine Assess Uterine Involution [WOMSER] Per Unit Routine Breast Pump [WOMSER] Per Unit Routine Peripheral IV Discontinue [OM.PC] Routine Sequential Compression Device [OM.PC] Per Unit Routine 07/28/21 14:23 Antiembolic Devices [RC] PER UNIT ROUTINE 07/28/21 14:30 Ketorolac [Toradol] 30 mg IVPUSH Q6H Lactated Ringers [Ringers, Lactated] 1,000 ml IV ASDIRECTED Oxytocin/Lactated Ringers [Pitocin in LR 30 Units/500 ML] 30 unit in 500 ml IV TITRATE 07/28/21 21:00 Docusate Sodium [Colace] 100 mg PO BID 07/28/21 22:00 Clindamycin Phosphate in D5W [Cleocin in D5W 900 MG/50 ML] 900 mg Premix Bag 1 bag IV Q8H 07/29/21 09:00 CBC WITH AUTO DIFF [HEME] Routine 07/29/21 20:30 Ibuprofen [Motrin] 800 mg PO Q8H PRN - Assessment Assessment:: 35yo s/p primary LTCS , with chorioamnionitis , PPH with anemia , POD 1 - Plan Plan:: * Rh positive, rubella immune, GBS negative * Continue antibiotics * 2PRBC * CBC In AM * pain control as needed * Venodynes * Incentive spirometry
[2021-07-29] MEDS: Lactated Ringers 1,000 ML IV SCH (07:41)
[2021-07-29] MEDS: Docusate Sodium 100 MG Cap PO SCH ×2 (08:39→21:45)
[2021-07-29] MEDS: GENTAMICIN IV SCH ×2 (11:28)
[2021-07-29] MEDS: DEXTROSE 5% IV SCH ×2 (11:28)
[2021-07-29] MEDS: WATER IV SCH ×2 (11:28)
--- NOTE | 2021-07-29 15:30 | OR ---
SURGEON: DEBBIE CHUN DATE OF PROCEDURE: 07/28/2021 PREOPERATIVE DIAGNOSES: A 35-year-old, 2, para 1-0-0-1 at 39 weeks 5 days, admitted in early labor in arrest with persistent category 2 heart tracing, chorioamnionitis. POSTOPERATIVE DIAGNOSES: Persistent category 2 heart tracing, chorioamnionitis, and left ovarian dermoid cyst. PROCEDURES: Primary lower segment section, left ovarian cystectomy, repair of broad ligament laceration. ANESTHESIA: Epidural and general. IV FLUIDS: 1800. ESTIMATED BLOOD LOSS: 1500. URINE OUTPUT: 150. NOTES AND FINDING: A live female delivered at 12:55. scores 8 and 8. Weight is 3550 g. Left dermoid cyst of 7 cm noted, which was removed. Left broad ligament laceration, which was repaired. BRIEF HISTORY ABOUT THE PATIENT: This is a 35-year-old, G2, P 1-0-0-1 at 39 weeks 5 days, who came in early labor and was noted to have some contractions. She was about 2 cm dilated. The patient was kept for augmentation of labor. The patient received Pitocin. When she was about 2 to 3 cm dilated, she was ruptured. IUPC was placed in. After she was ruptured, she was noted to have tachycardia to 180s. She was given gentamicin with Tylenol. There was no change in the tracing. She was still noted to have some deep variables to the 90s. Afterwards with some resuscitation and amnioinfusion variables improved. However, the tachycardia persisted. As a result of this, the patient had persistent category 2 heart tracing for about 2 hours with no improvement. She was counseled for a delivery. She was explained the risks, benefits, and alternatives, and she decided to proceed. DESCRIPTION OF PROCEDURE: The patient was taken to the operating room where epidural anesthesia was topped up. She was prepared and draped in the dorsal supine position with a leftward tilt. A Pfannenstiel skin incision was made with a scalpel and carried down to the fascia with the Bovie. The fascia was incised and extended upwards and laterally. The fascia was in the midline. The rectus muscle was in the midline to expose the peritoneum. The peritoneum was entered bluntly. An Sravan retractor was placed in without any difficulty. The lower uterine segment was identified. A bladder flap was created. A lower uterine incision was made and was extended upwards and outwards manually. The fetus was in cephalic position, and with fundal pressure was delivered. Cord clamping was observed. The infant was cleaned, suctioned, and handed over to the awaiting pediatric team. The edges of the hysterotomy were clamped with clamps to prevent bleeding, and then was sutured in 2 layers, first layer with 0 Vicryl, second layer with 0 Monocryl. A hiatus was noted in the broad ligament on the left with some bowel protruding, so the bowel was reduced and the laceration was sutured. The uterus was exteriorized in order to view the hiatus of the broad ligament properly and removed the sponge was used to reduce the bowel. A left dermoid cyst was noted to be obstructing the view. As a result, a linear incision was made on the ovary and the cystectomy was done without any difficulty and no spillage. The specimen was sent for pathology. The ovary was then suture ligated. The cyst wall was removed, and hemostasis was noted. The uterus was then placed back into the abdomen. The broad ligament was noted to reoccur and was then sutured back again. The uterine incision was noted to be hemostatic. The peritoneum was then closed with 2-0 Vicryl. The fascia was closed with 0 Vicryl. The subcutaneous fat was closed with 2.0 plain gut. The skin was closed with 3-0 Monocryl on a James needle. All instrument and pad counts were correct x2. The patient tolerated the procedure well. Due to blood loss, the patient will have H and H done and will receive transfusion of appropriate. The patent tolerated the procedure well. DAMASO / KENNY /[id number] PASTOR
[2021-07-29] MEDS ORDERED: Lactated Ringers 1,000 ML IV ONE (17:30)
[2021-07-29] MEDS: Acetaminophen/oxyCODONE 325-5 MG Tab PO PRN ×2 (18:19→23:10)
[2021-07-29] MEDS ORDERED: Ibuprofen 800 MG Tab PO PRN (20:30)
[2021-07-30] MEDS: Ampicillin 2 GM in Sodium Chloride 0.9% 100 ML IV SCH ×3 (00:08→11:01)
[2021-07-30] MEDS: Acetaminophen/oxyCODONE 325-5 MG Tab PO PRN ×2 (04:22→10:24)
[2021-07-30] MEDS: Clindamycin Phosphate in D5W 900 MG in Premix Bag 1 BAG IV SCH ×2 (06:48)
[2021-07-30] MEDS: Docusate Sodium 100 MG Cap PO SCH (09:05)
--- NOTE | 2021-07-30 11:39 | PCM.PNPP ---
- General Info Date of Service: 07/30/21 Admission Dx/Problem (Free Text): Patient Status Order with Admit Dx/Problem Subjective Update: 35yo s/p primary for Cat 2FHT , PPH Patient feeling better , s/p 2uPRBC , She is voiding and tolerating regular diet , bottlefeeding, normal lochia BPP : 107/45 --> 119/76 H/H : 8. Functional Status: Reports: Pain Controlled, Tolerating Diet, Ambulating, Urinating - Review of Systems General: Reports: No Symptoms HEENT: Reports: No Symptoms Pulmonary: Reports: No Symptoms Cardiovascular: Reports: No Symptoms Gastrointestinal: Reports: No Symptoms Genitourinary: Reports: No Symptoms Musculoskeletal: Reports: No Symptoms Skin: Reports: No Symptoms Neurological: Reports: No Symptoms Psychiatric: Reports: No Symptoms - General Info Date of Service: 07/30/21 - Patient Data Vital Signs - Most Recent: Last Vital Signs Temp 36.7 C 07/30/21 07:38 Pulse 84 07/30/21 07:38 Resp 16 07/30/21 07:38 BP 119/76 07/30/21 07:38 Pulse Ox 98 07/30/21 07:38 Weight - Most Recent: 76.204 kg I&O - Last 24 Hours: Intake & Output 07/29/21 07/30/21 07/30/21 22:59 06:59 14:59 Intake Total 800 Output Total 700 800 275 Balance -700 0 -275 Lab Results - Last 24 Hours: Laboratory Results - last 24 hr 07/30/21 Range/Units 06:18 WBC 14.44 H (4.0-11.0) K/uL RBC 3.39 L (4.30-5.90) M/uL Hgb 8.6 L (12.0-16.0) g/dL Hct 26.0 L (36.0-46.0) % MCV 76.7 L (80.0-98.0) fL MCH 25.4 L (27.0-32.0) pg MCHC 33.1 (31.0-37.0) g/dL RDW Std Deviation 45.2 (28.0-62.0) fl RDW Coeff of Florentino 16 H (11.0-15.0) % Plt Count 236 (150-400) K/uL MPV 9.90 (7.40-12.00) fL Neut % (Auto) 83.2 H (48.0-80.0) % Lymph % (Auto) 7.1 L (16.0-40.0) % Coles % (Auto) 6.6 (0.0-15.0) % Eos % (Auto) 3.0 (0.0-7.0) % Baso % (Auto) 0.1 (0.0-1.5) % Neut # (Auto) 12.0 H (1.4-5.7) K/uL Lymph # (Auto) 1.0 (0.6-2.4) K/uL Coles # (Auto) 1.0 H (0.0-0.8) K/uL Eos # (Auto) 0.4 (0.0-0.7) K/uL Baso # (Auto) 0.0 (0.0-0.1) K/uL Nucleated RBC % 0.0 /100WBC Nucleated RBCs # 0 K/uL Med Orders - Current: Current Medications Acetaminophen (Acetaminophen 325 Mg Tab) 1,000 mg PO Q8H PRN PRN Reason: Fever Bisacodyl (Bisacodyl 10 Mg Supp) 10 mg RECTAL ONETIME PRN PRN Reason: Constipation Carboprost Tromethamine (Carboprost Tromethamine 250 Mcg/1 Ml Amp) 250 mcg IM ASDIRECTED PRN PRN Reason: Post Hemorrhage Diphenhydramine HCl (Diphenhydramine 50 Mg/Ml Sdv) 25 mg IVPUSH Q6H PRN PRN Reason: Itching or Nausea Docusate Sodium (Docusate Sodium 100 Mg Cap) 100 mg PO BID [facility] Last Admin: 07/30/21 09:05 Dose: 100 mg Documented by: Emollient Ointment (Lanolin 100% Cream 7 Gm Tube) 0 gm TOP ASDIRECTED PRN PRN Reason: Sore Nipples Ephedrine Sulfate (Ephedrine 50 Mg/Ml Sdv) 10 mg IVPUSH Q1M PRN PRN Reason: Hypotension Lactated Ringer's (Ringers, Lactated) 1,000 mls @ 150 mls/hr IV ASDIRECTED [facility] Last Admin: 07/28/21 21:18 Dose: 150 mls/hr Documented by: Oxytocin/Sodium Chloride (Oxytocin 30 Unit In Ns 0.9% 500 Ml Premix) 30 unit in 500 mls @ 500 mls/hr IV TITRATE [facility] Tranexamic Acid 1,000 mg/ (Sodium Chloride) 110 mls @ 660 mls/hr IV ONETIME PRN PRN Reason: Bleeding Oxytocin/Sodium Chloride (Oxytocin 30 Unit In Ns 0.9% 500 Ml Premix) 30 unit in 500 mls @ 2 mls/hr IV TITRATE [facility]; Protocol Last Titration: 07/28/21 10:45 Dose: 0 munits/min, 0 mls/hr Documented by: Ampicillin Sodium 2 gm/ Sodium (Chloride) 100 mls @ 200 mls/hr IV Q6H [facility] Last Admin: 07/30/21 11:01 Dose: 200 mls/hr Documented by: Gentamicin Sulfate 420 mg/ (Dextrose/Water) 110.5 mls @ 221 mls/hr IV Q24H [facility] Last Admin: 07/29/21 11:28 Dose: 221 mls/hr Documented by: Lactated Ringer's (Ringers, Lactated) 1,000 mls @ 125 mls/hr IV ASDIRECTED [facility] Last Admin: 07/29/21 07:41 Dose: 125 mls/hr Documented by: Oxytocin/Lactated Ringer's (Pitocin In Lr 30 Units/500 Ml) 30 unit in 500 mls @ 2 mls/hr IV TITRATE [facility]; Protocol Tranexamic Acid 1,000 mg/ (Sodium Chloride) 110 mls @ 660 mls/hr IV ONETIME PRN PRN Reason: Bleeding Clindamycin Phosphate 900 mg/ (Premix) 50 mls @ 100 mls/hr IV Q8H [facility] Last Admin: 07/30/21 06:48 Dose: 100 mls/hr Documented by: Sodium Chloride (Normal Saline) 1,000 mls @ 500 mls/hr IRR ASDIRECTED [facility] Last Admin: 07/28/21 10:45 Dose: 500 mls/hr Documented by: Ibuprofen (Ibuprofen 800 Mg Tab) 800 mg PO Q8H PRN PRN Reason: Cramping Lidocaine HCl (Lidocaine 1% 50 Ml Mdv) 50 ml INJECT ONETIME PRN PRN Reason: Laceration repair Methylergonovine Maleate (Methylergonovine 0.2 Mg/1 Ml Amp) 0.2 mg IM ASDIRECTED PRN PRN Reason: Post Hemorrhage Methylergonovine Maleate (Methylergonovine 0.2 Mg/1 Ml Amp) 0.2 mg IM ONETIME PRN PRN Reason: Excessive Vaginal Bleeding Miscellaneous Medication (Phenylephrine Hcl In 0.9% Nacl 1 Mg/10 Ml Syringe) 0.1 mg IVPUSH Q1M PRN PRN Reason: Hypotension Last Admin: 07/28/21 09:10 Dose: 0.1 mg Documented by: Misoprostol (Misoprostol 200 Mcg Tab) 200 mcg PO ONETIME PRN PRN Reason: Post Hemorrhage Misoprostol (Misoprostol 200 Mcg Tab) 1,000 mcg RECTAL ONETIME PRN PRN Reason: excessive bleeding Nalbuphine HCl (Nalbuphine 10 Mg/1 Ml Vial) 10 mg IVPUSH Q1H PRN PRN Reason: Pain (severe 7-10) Ondansetron HCl (Ondansetron 4 Mg/2 Ml Sdv) 4 mg IVPUSH Q4H PRN PRN Reason: Nausea/Vomiting Ondansetron HCl (Ondansetron 4 Mg/2 Ml Sdv) 4 mg IVPUSH Q4H PRN PRN Reason: Nausea/Vomiting Last Admin: 07/28/21 18:30 Dose: 4 mg Documented by: Oxycodone/Acetaminophen (Acetaminophen/Oxycodone 325-5 Mg Tab) 1 tab PO Q4H PRN PRN Reason: Pain (severe 7-10) Oxycodone/Acetaminophen (Acetaminophen/Oxycodone 325-5 Mg Tab) 2 tab PO Q4H PRN PRN Reason: Pain (severe 7-10) Last Admin: 07/30/21 10:24 Dose: 2 tab Documented by: Oxytocin (Oxytocin 10 Units/1 Ml Sdv) 10 unit IM ASDIRECTED PRN PRN Reason: Excessive Vaginal Bleeding Ropivacaine (Ropivacaine/Pf 400 Mg/200 Ml Marketing Coordinator) 400 mg EPIDUR ASDIRECTED [facility]UI Sodium Chloride (Sodium Chloride 0.9% 10 Ml Syringe) 10 ml FLUSH ASDIRECTED PRN PRN Reason: Keep Vein Open Sodium Chloride (Sodium Chloride 0.9% 2.5 Ml Syringe) 2.5 ml FLUSH ASDIRECTED PRN PRN Reason: Keep Vein Open Sodium Chloride (Sodium Chloride 0.9% 10 Ml Sdv) 10 ml IV ASDIRECTED PRN PRN Reason: IV Use Sterile Water (Water For Irrigation,Sterile 1,000 Ml Container) 1,000 ml IRR ASDIRECTED PRN PRN Reason: delivery Terbutaline Sulfate (Terbutaline 1 Mg/Ml Sdv) 0.25 mg SUBCUT ASDIRECTED PRN PRN Reason: Tacysystole Discontinued Medications Acetaminophen (Acetaminophen 500 Mg Tab) Confirm Administered Dose 1,000 mg .ROUTE .STK-MED ONE Stop: 07/28/21 10:44 Last Admin: 07/28/21 10:46 Dose: 1,000 mg Documented by: Bupivacaine HCl (Bupivacaine 0.25% 10 Ml Sdv) Confirm Administered Dose 10 ml .ROUTE .STK-MED ONE Stop: 07/28/21 02:44 Last Admin: 07/29/21 03:14 Dose: Not Given Documented by: Butorphanol Tartrate (Butorphanol 1 Mg/Ml Sdv) 1 mg IVPUSH ONETIME ONE Stop: 07/28/21 00:31 Last Admin: 07/28/21 00:41 Dose: 1 mg Documented by: Ephedrine Sulfate (Ephedrine 50 Mg/Ml Sdv) Confirm Administered Dose 50 mg .ROUTE .STK-MED ONE Stop: 07/28/21 13:25 Gentamicin Sulfate (Pharmacy To Dose - Gentamicin) 1 dose .XX ASDIRECTED HUI Lactated Ringer's (Ringers, Lactated) 1,000 mls @ 500 mls/hr IV BOLUS ONE Stop: 07/28/21 02:29 Last Admin: 07/28/21 00:25 Dose: 500 mls/hr Documented by: Ropivacaine (Naropin 0.2%) Confirm Administered Dose 200 mls @ as directed .ROUTE .STK-MED ONE Stop: 07/28/21 02:43 Last Admin: 07/29/21 03:14 Dose: Not Given Documented by: Clindamycin Phosphate 900 mg/ (Premix) 50 mls @ 100 mls/hr IV ONETIME ONE Stop: 07/28/21 12:52 Sodium Chloride (Normal Saline) Confirm Administered Dose 20 mls @ as directed .ROUTE .STK-MED ONE Stop: 07/28/21 13:26 Lactated Ringer's (Ringers, Lactated) 1,000 mls @ 999 mls/hr IV ONETIME ONE Stop: 07/29/21 18:30 Last Admin: 07/29/21 17:49 Dose: 999 mls/hr Documented by: Ketorolac Tromethamine (Ketorolac 30 Mg/Ml Sdv) Confirm Administered Dose 30 mg .ROUTE .STK-MED ONE Stop: 07/28/21 13:58 Ketorolac Tromethamine (Ketorolac 30 Mg/Ml Sdv) 30 mg IVPUSH Q6H HUI Stop: 07/29/21 14:31 Last Admin: 07/29/21 15:41 Dose: 30 mg Documented by: Lidocaine/Epinephrine (Lidocaine 2% With Epinephrine 1:200,000 20 Ml Sdv) Confirm Administered Dose 20 ml .ROUTE .STK-MED ONE Stop: 07/28/21 12:46 Miscellaneous Medication (Phenylephrine Hcl In 0.9% Nacl 1 Mg/10 Ml Syringe) Confirm Administered Dose 1 mg .ROUTE .STK-MED ONE Stop: 07/28/21 12:46 Morphine Sulfate (Morphine Pf 10 Mg/10 Ml Sdv) Confirm Administered Dose 10 mg .ROUTE .STK-MED ONE Stop: 07/28/21 12:51 Ondansetron HCl (Ondansetron 4 Mg/2 Ml Sdv) Confirm Administered Dose 4 mg .ROUTE .STK-MED ONE Stop: 07/28/21 12:15 Oxytocin (Oxytocin 10 Units/1 Ml Sdv) Confirm Administered Dose 10 unit .ROUTE .STK-MED ONE Stop: 07/28/21 12:13 Oxytocin (Oxytocin 10 Units/1 Ml Sdv) Confirm Administered Dose 10 unit .ROUTE .STK-MED ONE Stop: 07/28/21 12:13 Oxytocin (Oxytocin 10 Units/1 Ml Sdv) Confirm Administered Dose 10 unit .ROUTE .STK-MED ONE Stop: 07/28/21 13:01 Propofol (Propofol 200 Mg/20 Ml Sdv) Confirm Administered Dose 200 mg .ROUTE . STK-MED ONE Stop: 07/28/21 13:16 - Interaction Support Person: - Recovery Exam Fundal Tone: Firm Fundal Level: 1 Fingerbreadths Below Umbilicus Fundal Placement: Midline Lochia Amount: Scant Lochia Color: Rubra/Red Perineum Description: Intact, Minimal Bruising/Swelling Episiotomy/Laceration: None Bladder Status: Voiding Urinary Elimination: Voided Other Urinary Elimination, : due to void - Exam General: Alert, Oriented HEENT: Pupils Equal, Pupils Reactive Lungs: Clear to Auscultation Cardiovascular: Regular Rate, Regular Rhythm GI/Abdominal Exam: Normal Bowel Sounds Wound/Incisions: Dressing Dry and Intact Neurological: No New Focal Deficit - Problem List & Annotations (1) delivery delivered SNOMED Code(s): 582903973 Code(s): O82 - ENCOUNTER FOR DELIVERY WITHOUT INDICATION Status: Acute Current Visit: Yes (2) hemorrhage SNOMED Code(s): 78810648 Code(s): O72.1 - OTHER IMMEDIATE HEMORRHAGE Status: Acute Current Visit: No - Problem List Review Problem List Initiated/Reviewed/Updated: Yes - My Orders Last 24 Hours: My Active Orders 07/29/21 20:30 Ibuprofen [Motrin] 800 mg PO Q8H PRN - Assessment Assessment:: 35yo s/p primary LTCS , with chorioamnionitis , PPH with anemia , POD 2 s/p 2uPRBC stable - Plan Plan:: Discharge home Discharge instructions given
[2021-07-30] MEDS: DEXTROSE 5% IV SCH ×2 (11:50)
[2021-07-30] MEDS: GENTAMICIN IV SCH ×2 (11:50)
[2021-07-30] MEDS: WATER IV SCH ×2 (11:50)
[2021-07-30 12:03] VITALS: BP 121/74; PULSE 86
== END 2021-07-30 13:54 | disposition home or self-care (01) | DRG 540 ==
LOC: MW.OB 00:01 → MW.OBCHECK 00:01 → MW.OB 00:02 → MW.OBCHECK 00:02 → OBSVTOIN 13:00 → MW.OB 18:19
PROVIDERS: ADMIT Obstetrics & Gynecology; ATTEND Obstetrics & Gynecology
PROC: 10D00Z1 Extraction of Products of Conception, Low, Open Approach (ICD-10-PCS; principal; 2021-07-28)
PROC: 0UB10ZZ Excision of Left Ovary, Open Approach (ICD-10-PCS; 2021-07-28)
PROC: 0UQ90ZZ Repair Uterus, Open Approach (ICD-10-PCS; 2021-07-28)
PROC: 10H07YZ Insertion of Other Device into Products of Conception, Via Natural or Artificial Opening (ICD-10-PCS; 2021-07-28)
DX: O99.892 Other specified diseases and conditions complicating childbirth (principal); O99.62 Diseases of the digestive system complicating childbirth; O41.1230 Chorioamnionitis, third trimester, not applicable or unspecified; Z37.0 Single live birth; K21.9 Gastro-esophageal reflux disease without esophagitis; O72.1 Other immediate postpartum hemorrhage; D27.1 Benign neoplasm of left ovary; Z20.822 Contact with and (suspected) exposure to COVID-19; O99.02 Anemia complicating childbirth; D64.9 Anemia, unspecified; Z91.018 Allergy to other foods; Z3A.39 39 weeks gestation of pregnancy
CPT/HCPCS: 01967; 36415; 36430; 59025; 82803; 85014; 85018; 85025; 85027; 86592; 86850; 86870; 86900; 86901; 86902; 86920; 86921; 86922; A9270-GY; J0290; J0595; J1580; J1885; J2270; J2370; J2405; J2590; J2704; J2795; J3490; J7030; J7120; P9016; U0002

== ENCOUNTER 2022-05-09 16:13 | Emergency (ER) | payer BC ==
[2022-05-09 16:37] VITALS: BP 128/90; PULSE 128
[2022-05-09] MEDS ORDERED: Sodium Chloride 0.9% 1,000 ML IV ONE (16:39)
[2022-05-09 17:35] LABS: CARBON DIOXIDE,CO2 22.4 mmol/L (21.0-32.0); POTASSIUM,K 3.4 mmol/L (3.5-5.1)
== END 2022-05-09 16:34 | disposition left against medical advice (07) ==
LOC: MW.ED 16:13
DX: F41.0 Panic disorder [episodic paroxysmal anxiety] (principal); K21.9 Gastro-esophageal reflux disease without esophagitis
CPT/HCPCS: 36415; 71045; 71045-26; 80053; 84702; 85025; 99284

== ENCOUNTER 2022-10-11 05:10 | Inpatient (IN) | payer BC ==
[2022-10-11] MEDS: Lactated Ringers 1,000 ML IV SCH ×5 (05:35→22:38)
[2022-10-11] MEDS ORDERED: ceFAZolin 2 GM in Premix Bag 1 BAG IV ONE (05:50)
[2022-10-11] MEDS ORDERED: Citric Acid/Sodium Citrate Solution 30 ML Cup PO ONE (05:50)
[2022-10-11] MEDS ORDERED: Ondansetron 4 MG/2 ML SDV IVPUSH PRN ×3 (05:50→09:27)
[2022-10-11] MEDS ORDERED: Sodium Chloride 0.9% 2.5 ML Syringe FLUSH PRN (05:50)
[2022-10-11] MEDS ORDERED: Sodium Chloride 0.9% 10 ML Syringe FLUSH PRN (05:50)
[2022-10-11] MEDS ORDERED: Sodium Chloride 0.9% 20 ML SDV IV PRN (05:50)
[2022-10-11] MEDS ORDERED: Oxytocin/0.9 % Sodium Chloride 30 UNIT/500 ML BAG IV SCH (06:00)
[2022-10-11] MEDS ORDERED: Morphine PF 10 MG/10 ML SDV ONE (07:37)
[2022-10-11] MEDS ORDERED: fentaNYL 100 MCG/2 ML SDV ONE (07:37)
[2022-10-11] MEDS ORDERED: Ketorolac 30 MG/ML SDV ONE (07:38)
[2022-10-11] MEDS ORDERED: Bupivacaine 0.5% 10 ML SDV ONE (07:38)
[2022-10-11] MEDS ORDERED: Dexamethasone 4 MG/ML 5 ML MDV ONE (07:38)
[2022-10-11] MEDS ORDERED: Ropivacaine 0.5% 5 MG/ML 30 ML SDV ONE (07:38)
[2022-10-11] MEDS ORDERED: Ondansetron 4 MG/2 ML SDV ONE (07:38)
[2022-10-11] MEDS ORDERED: Oxytocin 10 Units/1 ML SDV ONE (07:38)
[2022-10-11] MEDS ORDERED: Phenylephrine 1% 10 MG/ML SDV ONE (07:39)
[2022-10-11] MEDS ORDERED: ceFAZolin 1 GM Vial ONE (08:15)
[2022-10-11] MEDS ORDERED: fentaNYL 100 MCG/2 ML SDV IVPUSH PRN ×2 (09:27)
[2022-10-11] MEDS ORDERED: Morphine 2 MG/ML SYRINGE IVPUSH PRN (09:27)
[2022-10-11] MEDS ORDERED: Albuterol 0.083% 2.5 MG/3 ML Neb Soln NEB PRN (09:27)
[2022-10-11] MEDS ORDERED: Metoclopramide 10 MG/2 ML SDV IVPUSH PRN (09:27)
[2022-10-11] MEDS ORDERED: Naloxone 0.4 MG/ML SDV IVPUSH PRN (09:27)
[2022-10-11] MEDS ORDERED: HYDROmorphone 2 MG/ML Syringe IVPUSH PRN (09:27)
[2022-10-11] MEDS ORDERED: ePHEDrine 50 MG/ML SDV IVPUSH PRN (09:27)
[2022-10-11] MEDS ORDERED: Phenylephrine HCl In 0.9% NaCl 1 MG/10 ML Vial IVPUSH SCH (09:30)
[2022-10-11] MEDS: diphenhydrAMINE 50 MG/ML SDV IVPUSH PRN ×2 (10:11→22:34)
[2022-10-11] MEDS: Ketorolac 30 MG/ML SDV IVPUSH SCH ×2 (15:28→21:30)
[2022-10-11] MEDS ORDERED: Metoclopramide 10 MG/2 ML SDV IVPUSH ONE (15:55)
[2022-10-12] MEDS: Ketorolac 30 MG/ML SDV IVPUSH SCH ×2 (03:29→10:20)
[2022-10-12] MEDS ORDERED: Docusate Sodium 100 MG Cap ONE (10:12)
[2022-10-12] MEDS: Acetaminophen/oxyCODONE 325-5 MG Tab PO PRN ×2 (13:15→20:03)
[2022-10-13] MEDS: Acetaminophen/oxyCODONE 325-5 MG Tab PO PRN ×2 (02:19→08:53)
[2022-10-13 11:59] VITALS: BP 140/87; PULSE 99
== END 2022-10-13 12:30 | disposition home or self-care (01) | DRG 540 ==
LOC: MW.OB 05:10
PROVIDERS: ADMIT Obstetrics & Gynecology; ATTEND Obstetrics & Gynecology
PROC: 10D00Z1 Extraction of Products of Conception, Low, Open Approach (ICD-10-PCS; principal; 2022-10-11)
DX: O34.211 Maternal care for low transverse scar from previous cesarean delivery (principal); Z3A.39 39 weeks gestation of pregnancy; Z37.0 Single live birth; Z91.018 Allergy to other foods; O99.62 Diseases of the digestive system complicating childbirth; O99.334 Smoking (tobacco) complicating childbirth; F17.210 Nicotine dependence, cigarettes, uncomplicated; O69.81X0 Labor and delivery complicated by cord around neck, without compression, not applicable or unspecified; K21.9 Gastro-esophageal reflux disease without esophagitis
CPT/HCPCS: 36415; 59025; 59409; 80305-QW; 85027; 86592; 86780; 86850; 86870; 86900; 86901; 86902; 86920; 86921; 86922; A9270-GY; J0690; J1100; J1200; J1790; J1885; J2274; J2370; J2405; J2590; J2765; J2795; J3010; J3490; J7120

== ENCOUNTER 2022-10-30 19:03 | Emergency (ER) | payer BC ==
[2022-10-30] MEDS ORDERED: Lactated Ringers 1,000 ML IV STA (19:27)
[2022-10-30 19:57] LABS: CARBON DIOXIDE,CO2 26.5 mmol/L (21.0-32.0); POTASSIUM,K 3.2 mmol/L (3.5-5.1)
[2022-10-30] MEDS ORDERED: Magnesium Sulfate/Water 2 GM in Premix Bag 1 BAG IV ONE (20:28)
[2022-10-30] MEDS ORDERED: Potassium Chloride 10% 20 MEQ/15 ML Soln 30 ML UD Cup PO ONE (20:28)
[2022-10-30] MEDS ORDERED: Iopamidol 755 MG/ML 500 ML Multipack Bottle IVPUSH STA (20:33)
[2022-10-30 23:44] VITALS: BP 121/80; PULSE 66
== END 2022-10-30 23:42 | disposition home or self-care (01) ==
LOC: MW.ED 19:03
DX: O99.893 Other specified diseases and conditions complicating puerperium (principal); R55 Syncope and collapse; I10 Essential (primary) hypertension; Z91.018 Allergy to other foods
CPT/HCPCS: 36415; 74177; 80053; 81001; 81025; 83605; 83735; 84443; 84484; 85025; 85610; 93005; 96361; 96365; 96366; 99285; A9270; J3475; J7120; Q9967